=== PATIENT | female | born 1985 | race Hispanic/Latino ===

== ENCOUNTER 2020-06-10 02:59 | Emergency (ER) | payer OTHER ==
[2020-06-10] MEDS ORDERED: DiphenhydrAMINE HCL 50 MG/ML VIAL ONE (03:22)
[2020-06-10] MEDS ORDERED: PROCHLORPERAZINE EDISYLATE 10 MG/2 ML VIAL ONE (03:22)
[2020-06-10] MEDS ORDERED: SODIUM CHLORIDE 0.9% 50 ML IV ONE (03:23)
[2020-06-10 03:34] LABS: BASOPHILS % (AUTO) 0.3 % (0.0-5.0); EOSINOPHILS % (AUTO) 2.6 % (0.0-8.0); HEMATOCRIT 36.2 % (36-48); LYMPHOCYTES % (AUTO) 33.8 % (21.0-51.0); MEAN CORPUSCULAR HEMOGLOBIN 29.3 pg (27.0-33.0); MEAN CORPUSCULAR HGB CONC 32.9 g/dL (32.0-36.0); MEAN CORPUSCULAR VOLUME 89.2 fL (79-99); MONOCYTES % (AUTO) 6.2 % (3.0-13.0); NEUTROPHILS % (AUTO) 56.7 % (40.0-77.0); PLATELET COUNT (AUTO) 325 K/uL (130-400); RED BLOOD CELL COUNT(AUTO) 4.06 MIL/uL (4.00-5.50); RED CELL DISTRIBUTION WIDTH 13.1 % (11.0-15.5); WHITE BLOOD COUNT (AUTO) 10.2 K/uL (4.8-10.8)
[2020-06-10 03:39] LABS: CREATININE 0.5 mg/dL (0.5-1.5); POTASSIUM 3.9 mmol/L (3.5-5.1)
[2020-06-10 03:44] LABS: ALBUMIN 3.6 g/dL (3.5-5.0); BILIRUBIN,TOTAL 0.4 mg/dL (0.2-1.0); TOTAL PROTEIN, SERUM 7.6 g/dL (6.0-8.3)
[2020-06-10 04:00] LABS: APPEARANCE,URINE Clear (CLEAR); BILIRUBIN,URINE Negative (NEGATIVE); COLOR,URINE Yellow (YELLOW); GLUCOSE, URINE (UA) Negative (NEGATIVE); KETONES,URINE Negative (NEGATIVE); LEUKOCYTE ESTERASE ,URINE Moderate (NEGATIVE); NITRATE,URINE Negative (NEGATIVE); OCCULT BLOOD,URINE Negative (NEGATIVE); PROTEIN,URINE Negative (NEGATIVE)
[2020-06-10 04:07] LABS: BACTERIA,URINE Rare /HPF (None Seen); RBC,URINE None Seen /HPF (0-1); SQUAMOUS EPITHELIAL CELL,UR Moderate /HPF (0-2)
[2020-06-10 04:15] LABS: HCG,QUAL RESULT NEGATIVE (NEGATIVE)
== END 2020-06-10 04:40 | disposition home or self-care (01) ==
LOC: EDH 02:59
DX: R51.9 Headache, unspecified (principal); R42 Dizziness and giddiness; I10 Essential (primary) hypertension; E78.00 Pure hypercholesterolemia, unspecified
CPT/HCPCS: 36415; 80053; 81001; 81025; 85025; 87088; 96361; 96374; 96375; 99284; J0780; J1200

== ENCOUNTER 2021-01-05 00:03 | Emergency (ER) | payer OTHER ==
[~2021-01-05] VITALS: Ht 157.5 cm; Wt 112.0 kg
[2021-01-05] MEDS ORDERED: METH4TAB3 PO (01:33)
[2021-01-05] MEDS ORDERED: PREDNISONE 20 MG TABLET PO ONE (02:00)
[2021-01-05 02:08] VITALS: BP 123/81
== END 2021-01-05 02:09 | disposition home or self-care (01) ==
LOC: EDH 00:03
DX: S46.912A Strain of unspecified muscle, fascia and tendon at shoulder and upper arm level, left arm, initial encounter (principal); E78.00 Pure hypercholesterolemia, unspecified; I10 Essential (primary) hypertension; V49.49XA Driver injured in collision with other motor vehicles in traffic accident, initial encounter; Y93.89 Activity, other specified; Y92.89 Other specified places as the place of occurrence of the external cause; Y99.8 Other external cause status
CPT/HCPCS: 71045; 73030

== ENCOUNTER → 2021-02-11 | Outpatient (CLI) | payer OTHER ==
[~2021-02-11] VITALS: Ht 5.1 cm; Wt 112.5 kg
[~2021-02-11] MED LIST: METH4TAB3 PO
== END | disposition home or self-care (01) ==
LOC: DTH 11:17
PROVIDERS: ATTEND Surgery
DX: Z71.3 Dietary counseling and surveillance (principal); E66.01 Morbid (severe) obesity due to excess calories; M19.91 Primary osteoarthritis, unspecified site; K21.9 Gastro-esophageal reflux disease without esophagitis; E78.00 Pure hypercholesterolemia, unspecified; K76.0 Fatty (change of) liver, not elsewhere classified
CPT/HCPCS: 97802

== ENCOUNTER 2021-03-22 06:38 | Day surgery (SDC) | payer OTHER ==
[~2021-03-22] VITALS: Ht 157.5 cm; Wt 112.5 kg
[~2021-03-22 06:38] MED LIST changes: +AMLO-257 PO; +IRBE1TAB41 PO; +PANT40TA54 PO
[2021-03-22] MEDS ORDERED: 0.9%NACL 1000ML 1,000 ML IV ONE (07:15)
[2021-03-22] MEDS ORDERED: PROPOFOL 10 MG/ML 20ML VIAL IV ONE (08:33)
[2021-03-22] MEDS ORDERED: LIDOCAINE HCL 1% 20 ML VIAL ONE (08:33)
[2021-03-22 08:47] VITALS: BP 135/91
[2021-03-22 08:50] VITALS: BP 107/71
[2021-03-22] MEDS ORDERED: ATOR10TA69 PO (08:52)
[2021-03-22] MEDS ORDERED: CHOL200013 PO (08:52)
[2021-03-22] MEDS ORDERED: METO-408 PO (08:52)
[2021-03-22 08:55] VITALS: BP 123/88
[2021-03-22 09:00] VITALS: BP 131/81
[2021-03-22 09:05] VITALS: BP 131/84
[2021-03-22 09:10] VITALS: BP 128/80
== END 2021-03-22 09:10 | disposition home or self-care (01) ==
LOC: DAH 06:38 → ENDO 06:38
PROVIDERS: ATTEND Surgery
DX: K21.9 Gastro-esophageal reflux disease without esophagitis (principal); Z20.822 Contact with and (suspected) exposure to COVID-19; I10 Essential (primary) hypertension; E66.9 Obesity, unspecified; E11.9 Type 2 diabetes mellitus without complications; E78.00 Pure hypercholesterolemia, unspecified; E66.01 Morbid (severe) obesity due to excess calories; Z68.42 Body mass index [BMI] 45.0-49.9, adult; Z90.89 Acquired absence of other organs
CPT/HCPCS: 43239; 87635; A4215 ×2; A4221; A4222; A4223; A4606; A4620; A4663; C9803; J2704; J7030

== ENCOUNTER 2021-05-10 06:38 | Inpatient (IN) | payer OTHER ==
[2021-05-05 11:10] LABS: BASOPHILS % (AUTO) 0.5 % (0.0-5.0); EOSINOPHILS % (AUTO) 1.6 % (0.0-8.0); LYMPHOCYTES % (AUTO) 34.6 % (21.0-51.0); MEAN CORPUSCULAR HEMOGLOBIN 29.6 pg (27.0-33.0); MEAN CORPUSCULAR HGB CONC 32.7 g/dL (32.0-36.0); MEAN CORPUSCULAR VOLUME 90.5 fL (79-99); MONOCYTES % (AUTO) 6.1 % (3.0-13.0); NEUTROPHILS % (AUTO) 57.1 % (40.0-77.0); PLATELET COUNT (AUTO) 311 K/uL (130-400); RED BLOOD CELL COUNT(AUTO) 4.09 MIL/uL (4.00-5.50); RED CELL DISTRIBUTION WIDTH 13.3 % (11.0-15.5); WHITE BLOOD COUNT (AUTO) 7.5 K/uL (4.8-10.8)
[2021-05-05 11:27] LABS: CREATININE 0.5 mg/dL (0.5-1.5); POTASSIUM 3.8 mmol/L (3.5-5.1)
[2021-05-05 11:59] LABS: INR 1.07 (0.85-1.15); PROTHROMBIN TIME 11.6 SEC (9.6-11.6)
[2021-05-06] MEDS: CEFAZOLIN SODIUM 1 GM VIAL IVP SCH (06:00)
[2021-05-07 09:23] VITALS: BP 113/73
[~2021-05-10] VITALS: Ht 157.5 cm; Wt 110.9 kg
[2021-05-10] VITALS (24 sets, daily range): BP systolic 104–128; BP diastolic 53–77
[2021-05-10] MEDS: CEFAZOLIN SODIUM 1 GM VIAL IVP SCH ×4 (06:00→23:20)
[~2021-05-10 06:38] MED LIST changes: +0.9%NACL 1000ML 1,000 ML IV SCH; -AMLO-257 PO; +ATOR10TA69 PO; +CHOL200013 PO; -IRBE1TAB41 PO; -METH4TAB3 PO; +METO-408 PO; -PANT40TA54 PO
[2021-05-10] MEDS ORDERED: BUPIVACAINE/PF 0.5% 30ML VIAL ONE (07:19)
[2021-05-10] MEDS ORDERED: SCOPOLAMINE HYDROBROMIDE 1 EACH ADH..PATCH TD ONE (07:30)
[2021-05-10] MEDS ORDERED: KETAMINE HCL 100 MG/ML 5ML VIAL IJ ONE (07:30)
[2021-05-10] MEDS ORDERED: MAGNESIUM SULFATE 1 GM/2 ML VIAL ONE (07:30)
[2021-05-10] MEDS ORDERED: DEXMEDETOMIDINE HCL 200 MCG/2 ML VIAL IV ONE (07:30)
[2021-05-10] MEDS ORDERED: LIDOCAINE PF 100MG/5ML (2%) SYRINGE 5ML ONE (07:37)
[2021-05-10] MEDS ORDERED: SUCCINYLCHOLINE 200MG/10ML SYR ONE (07:37)
[2021-05-10] MEDS ORDERED: PROPOFOL 10 MG/ML 20ML VIAL IV ONE (07:37)
[2021-05-10] MEDS ORDERED: ROCURONIUM 10MG/1ML SYR 10 MG/ML ML ONE ×2 (07:38→09:11)
[2021-05-10] MEDS ORDERED: ONDANSETRON 4MG INJ ONE ×2 (07:38→10:19)
[2021-05-10] MEDS ORDERED: MIDAZOLAM HCL 1 MG/ML 2ML VIAL ONE (07:39)
[2021-05-10] MEDS ORDERED: EPHEDRINE SULFATE 50 MG/ML AMPULE ONE (09:06)
[2021-05-10] MEDS ORDERED: KETOROLAC 30MG VIAL (30MG/ML) ONE (10:20)
[2021-05-10] MEDS ORDERED: MEPERIDINE-PF 25 MG/ML SYG ONE (10:20)
[2021-05-10] MEDS ORDERED: NEOSTIGMINE 5MG/5ML SYR IV ONE (10:23)
[2021-05-10] MEDS ORDERED: GLYCOPYRROLATE 1 MG/5 ML SYRINGE ONE (10:23)
[2021-05-10] MEDS: LACTATED RINGERS 1000ML 1,000 ML IV SCH ×2 (10:30→16:45)
[2021-05-10] MEDS: ONDANSETRON 4MG INJ IVP PRN ×2 (13:23→21:03)
[2021-05-10] MEDS: MORPHINE 5 MG/ML VIAL (5MG OR GREATER DOSE) IVP PRN ×2 (13:30→18:30)
[2021-05-10] MEDS: ENOXAPARIN SODIUM 30 MG/0.3 ML SQ SCH ×2 (13:38→20:26)
[2021-05-10] MEDS ORDERED: PHARMACY COMMUNICATION MISC SCH (16:00)
[2021-05-10] MEDS: KETOROLAC 30MG VIAL (30MG/ML) IV PRN ×2 (16:37→23:20)
[2021-05-10] MEDS: METOCLOPRAMIDE 10 MG/2 ML VIAL IVP PRN (17:33)
[2021-05-10] MEDS: FAMOTIDINE 20MG VIAL IV SCH (20:26)
[2021-05-10] MEDS ORDERED: CEFAZOLIN SODIUM 1 GM VIAL ONE (23:17)
[2021-05-11] MEDS: LACTATED RINGERS 1000ML 1,000 ML IV SCH ×3 (01:53→18:30)
[2021-05-11 04:15] LABS: BASOPHILS % (AUTO) 0.1 % (0.0-5.0); EOSINOPHILS % (AUTO) 0.1 % (0.0-8.0); LYMPHOCYTES % (AUTO) 17.1 % (21.0-51.0); MEAN CORPUSCULAR HEMOGLOBIN 28.5 pg (27.0-33.0); MEAN CORPUSCULAR HGB CONC 31.6 g/dL (32.0-36.0); MEAN CORPUSCULAR VOLUME 90.1 fL (79-99); MONOCYTES % (AUTO) 6.7 % (3.0-13.0); NEUTROPHILS % (AUTO) 75.4 % (40.0-77.0); PLATELET COUNT (AUTO) 305 K/uL (130-400); RED BLOOD CELL COUNT(AUTO) 3.55 MIL/uL (4.00-5.50); RED CELL DISTRIBUTION WIDTH 13.4 % (11.0-15.5); WHITE BLOOD COUNT (AUTO) 13.7 K/uL (4.8-10.8)
[2021-05-11 04:16] VITALS: BP 124/69
[2021-05-11 04:54] LABS: CREATININE 0.6 mg/dL (0.5-1.5); POTASSIUM 3.8 mmol/L (3.5-5.1)
[2021-05-11] MEDS: MORPHINE 5 MG/ML VIAL (5MG OR GREATER DOSE) IVP PRN ×2 (06:47→20:20)
[2021-05-11 07:51] VITALS: BP 117/64
[2021-05-11] MEDS: FAMOTIDINE 20MG VIAL IV SCH ×2 (09:33→20:07)
[2021-05-11] MEDS: METOPROLOL SUCCINATE 50 MG TAB.SR.24H PO SCH (09:33)
[2021-05-11] MEDS: ENOXAPARIN SODIUM 30 MG/0.3 ML SQ SCH ×2 (09:34→20:07)
[2021-05-11] MEDS: ONDANSETRON 4MG INJ IVP PRN (10:16)
[2021-05-11 10:30] VITALS: BP 128/77
[2021-05-11] MEDS: METOCLOPRAMIDE 10 MG/2 ML VIAL IVP PRN (12:52)
[2021-05-11] MEDS: KETOROLAC 30MG VIAL (30MG/ML) IV PRN (12:53)
[2021-05-11 16:21] VITALS: BP 113/70
[2021-05-11 20:08] VITALS: BP 114/74
[2021-05-12 00:12] VITALS: BP 136/70
[2021-05-12] MEDS: METOCLOPRAMIDE 10 MG/2 ML VIAL IVP PRN (00:23)
[2021-05-12] MEDS: KETOROLAC 30MG VIAL (30MG/ML) IV PRN (00:24)
[2021-05-12] MEDS: LACTATED RINGERS 1000ML 1,000 ML IV SCH ×2 (02:23→09:41)
[2021-05-12 04:12] VITALS: BP 110/67
[2021-05-12 08:00] VITALS: BP 111/71
[2021-05-12 09:05] LABS: HEMATOCRIT 31.6 % (36-48); MEAN CORPUSCULAR HEMOGLOBIN 28.6 pg (27.0-33.0); MEAN CORPUSCULAR HGB CONC 31.3 g/dL (32.0-36.0); MEAN CORPUSCULAR VOLUME 91.3 fL (79-99); PLATELET COUNT (AUTO) 256 K/uL (130-400); RED BLOOD CELL COUNT(AUTO) 3.46 MIL/uL (4.00-5.50); RED CELL DISTRIBUTION WIDTH 13.9 % (11.0-15.5); WHITE BLOOD COUNT (AUTO) 11.6 K/uL (4.8-10.8)
[2021-05-12 09:17] LABS: CREATININE 0.6 mg/dL (0.5-1.5); POTASSIUM 4.2 mmol/L (3.5-5.1)
[2021-05-12 09:23] LABS: ALBUMIN 2.9 g/dL (3.5-5.0); BILIRUBIN,TOTAL 0.5 mg/dL (0.2-1.0); TOTAL PROTEIN, SERUM 6.5 g/dL (6.0-8.3)
[2021-05-12] MEDS: FAMOTIDINE 20MG VIAL IV SCH (09:36)
[2021-05-12] MEDS: METOPROLOL SUCCINATE 50 MG TAB.SR.24H PO SCH (09:36)
[2021-05-12] MEDS: ENOXAPARIN SODIUM 30 MG/0.3 ML SQ SCH (09:37)
[2021-05-12 09:47] LABS: LYMPHOCYTES % (MANUAL) 34 % (22-44); MONOCYTES % (MANUAL) 11 % (2-9); SEGMENTED NEUTROPHILS % 55 % (40-70)
[2021-05-12 09:48] LABS: MAN.DIFF COMMENT-IMPRESSION MANUAL DIFFERENTIAL; PLATELET MORPHOLOGY COMMENT ADEQUATE
== END 2021-05-12 13:35 | disposition home or self-care (01) | DRG 621 ==
LOC: DAHIP 06:38 → 4BH 11:47
PROVIDERS: ADMIT Surgery; ATTEND Surgery
PROC: 0D164ZA Bypass Stomach to Jejunum, Percutaneous Endoscopic Approach (ICD-10-PCS; principal; 2021-05-10 08:20)
DX: E66.01 Morbid (severe) obesity due to excess calories (principal); K21.9 Gastro-esophageal reflux disease without esophagitis; Z20.822 Contact with and (suspected) exposure to COVID-19; I10 Essential (primary) hypertension; E78.00 Pure hypercholesterolemia, unspecified; E28.2 Polycystic ovarian syndrome; B96.81 Helicobacter pylori [H. pylori] as the cause of diseases classified elsewhere; Z68.41 Body mass index [BMI] 40.0-44.9, adult
CPT/HCPCS: 36415; 43235; 71045; 80048; 80053; 84703; 85025; 85610; 86850; 86900; 86901; 87635; 93005; G0378; J0330; J0690; J1650; J1885; J2001; J2175; J2250; J2270; J2405; J2704; J2710; J2765; J3475; J3490; J7030; J7120

== ENCOUNTER 2021-09-16 09:13 | Emergency (ER) | payer OTHER ==
[~2021-09-16] VITALS: Ht 157.5 cm; Wt 86.2 kg
[~2021-09-16 09:13] MED LIST changes: -0.9%NACL 1000ML 1,000 ML IV SCH; -METO-408 PO
[2021-09-16] MEDS ORDERED: MAGNESIUM CITRATE 296 ML SOLUTION PO ONE (11:00)
[2021-09-16 12:23] VITALS: BP 122/76
== END 2021-09-16 12:31 | disposition home or self-care (01) ==
LOC: EDH 09:13
DX: K59.00 Constipation, unspecified (principal); Z79.899 Other long term (current) drug therapy; Z90.89 Acquired absence of other organs; Z98.890 Other specified postprocedural states
CPT/HCPCS: 74021

== ENCOUNTER 2021-09-20 10:46 | Emergency (ER) | payer OTHER ==
[~2021-09-20] VITALS: Ht 157.5 cm; Wt 85.3 kg
[2021-09-20] MEDS ORDERED: LACT1CAP69 PO (11:28)
[2021-09-20] MEDS ORDERED: PSYL3.4P5 PO (11:28)
[2021-09-20] MEDS ORDERED: POLY17PO4 PO (11:28)
[2021-09-20] MEDS ORDERED: HYDR25SU38 RC (11:28)
[2021-09-20] MEDS ORDERED: GLYC-30 RC (11:28)
[2021-09-20] MEDS ORDERED: LACTULOSE 20 GM/30 ML UDCUP PO ONE (11:30)
[2021-09-20] MEDS ORDERED: MAGNESIUM CITRATE 296 ML SOLUTION PO ONE (11:30)
[2021-09-20 11:55] VITALS: BP 123/86
== END 2021-09-20 11:56 | disposition home or self-care (01) ==
LOC: EDH 10:46
DX: K59.00 Constipation, unspecified (principal); K64.9 Unspecified hemorrhoids; E66.9 Obesity, unspecified; Z68.34 Body mass index [BMI] 34.0-34.9, adult; Z79.899 Other long term (current) drug therapy; Z90.89 Acquired absence of other organs

== ENCOUNTER 2022-04-27 21:06 | Emergency (ER) | payer OTHER ==
[~2022-04-27] VITALS: Ht 157.5 cm; Wt 68.5 kg
[~2022-04-27 21:06] MED LIST changes: +GLYC-30 RC; +HYDR25SU38 RC; +LACT1CAP69 PO; +POLY17PO4 PO; +PSYL3.4P5 PO
[2022-04-27 21:08] VITALS: BP 122/77
[2022-04-28 00:24] LABS: BASOPHILS % (AUTO) 0.4 % (0.0-5.0); CREATININE 0.7 mg/dL (0.5-1.5); EOSINOPHILS % (AUTO) 1.2 % (0.0-8.0); HEMATOCRIT 41.5 % (36-48); LYMPHOCYTES % (AUTO) 40.7 % (21.0-51.0); MEAN CORPUSCULAR HEMOGLOBIN 30.5 pg (27.0-33.0); MEAN CORPUSCULAR HGB CONC 32.3 g/dL (32.0-36.0); MEAN CORPUSCULAR VOLUME 94.5 fL (79-99); MONOCYTES % (AUTO) 5.2 % (3.0-13.0); NEUTROPHILS % (AUTO) 52.2 % (40.0-77.0); PLATELET COUNT (AUTO) 310 K/uL (130-400); POTASSIUM 4.1 mmol/L (3.5-5.1); RED BLOOD CELL COUNT(AUTO) 4.39 MIL/uL (4.00-5.50); RED CELL DISTRIBUTION WIDTH 13.5 % (11.0-15.5); WHITE BLOOD COUNT (AUTO) 9.3 K/uL (4.8-10.8)
[2022-04-28 00:28] LABS: ALBUMIN 3.8 g/dL (3.5-5.0); TOTAL PROTEIN, SERUM 7.9 g/dL (6.0-8.3)
[2022-04-28 00:36] LABS: APPEARANCE,URINE CLEAR (CLEAR); BILIRUBIN,URINE NEGATIVE (NEGATIVE); COLOR,URINE YELLOW (YELLOW); GLUCOSE, URINE (UA) NEGATIVE (NEGATIVE); KETONES,URINE 10 mg/dL (NEGATIVE); LEUKOCYTE ESTERASE ,URINE 75 Leu/uL (NEGATIVE); NITRATE,URINE NEGATIVE (NEGATIVE); OCCULT BLOOD,URINE LARGE (NEGATIVE); PROTEIN,URINE 20 mg/dL (NEGATIVE); UROBILINOGEN,URINE 3 mg/dL (0.2-1.0)
[2022-04-28 00:39] LABS: HCG,QUALITATIVE URINE NEGATIVE (NEGATIVE)
[2022-04-28 00:42] LABS: MUCUS,URINE FEW LPF (None Seen); SQUAMOUS EPITHELIAL CELL,UR FEW /HPF (0-2)
[2022-04-28] MEDS ORDERED: IOHEXOL 350 MG/ML 100ML INFUS..BTL IV ONE (00:57)
[2022-04-28] MEDS ORDERED: FAMOTIDINE 20MG VIAL IV ONE (01:00)
[2022-04-28] MEDS ORDERED: CEFTRIAXONE 1G VIAL IVP STA (02:17)
[2022-04-28] MEDS ORDERED: OMEP-420 PO (02:26)
[2022-04-28] MEDS ORDERED: CEPH500B PO (02:26)
== END 2022-04-28 02:47 | disposition home or self-care (01) ==
LOC: EDH 21:06
DX: N39.0 Urinary tract infection, site not specified (principal); K29.70 Gastritis, unspecified, without bleeding; E66.9 Obesity, unspecified; Z68.27 Body mass index [BMI] 27.0-27.9, adult
CPT/HCPCS: 99285; 80053; 83690; 85025; 87088; 81001; 81025; 36415; 74177; 96374; 96375; J3490; J0696; Q9967